=== PATIENT | female | born 1990 | race Native Hawaiian/Other Pacific Islander ===

== ENCOUNTER 2017-01-03 16:55 | Outpatient (CLI) | payer OTHER | END 2017-01-03 17:13 | disposition short-term general hospital (02) | LOC: AMB 16:55 | DX: R10.84 Generalized abdominal pain (principal); Z33.1 Pregnant state, incidental | CPT/HCPCS: A0425; A0427 ==

== ENCOUNTER 2017-11-27 15:40 | Emergency (ER) | payer OTHER ==
[~2017-11-27] VITALS: Ht 157.5 cm; Wt 90.7 kg
[2017-11-27 15:30] VITALS: TEMP 98.4
[2017-11-27 16:41] LABS: PLATELET COUNT 167 K/uL (152-353)
[2017-11-27 16:50] LABS: POTASSIUM 4.3 mmol/L (3.6-5.2)
[2017-11-27 16:58] LABS: PARTIAL THROMBOPLASTIN TIME 24.9 SECONDS (24.5-33.6)
[2017-11-27 17:44] VITALS: BP 122/74
== END 2017-11-27 17:46 | disposition home or self-care (01) ==
LOC: ED 15:40
DX: M79.604 Pain in right leg (principal)
CPT/HCPCS: 36415; 80053; 85027; 85610; 85730; 99283

== ENCOUNTER 2018-01-05 02:53 | Emergency (ER) | payer OTHER ==
[~2018-01-05] VITALS: Ht 157.5 cm; Wt 90.7 kg
[2018-01-05 04:11] VITALS: BP 127/84; TEMP 98.1
== END 2018-01-05 04:12 | disposition home or self-care (01) ==
LOC: ED 02:53
DX: J02.9 Acute pharyngitis, unspecified (principal); L70.9 Acne, unspecified
CPT/HCPCS: 87081; 87880; 99283